=== PATIENT | male | born 1960 | race Caucasian/White ===

== ENCOUNTER → 2018-09-09 13:40 | Outpatient (CLI) | payer MEDICARE, SELFPAY ==
[2018-09-09 14:46] LABS: Anion Gap 11.7 mEq/L (5-15); Blood Urea Nitrogen 8 mg/dL (7-18); Calcium 9.3 mg/dL (8.5-10.1); Carbon Dioxide 26 mmol/L (21.0-32.0); Chloride 105 mmol/L (98-107); Creatinine,Serum 1.46 mg/dL (0.70-1.30); Estimated Glomerular Filt Rate 49 ml/min (>60); GFR (African American) 60 ML/MIN (>60); Glucose 92 mg/dL (74-106); Potassium 4.7 mmoL/L (3.5-5.1); Sodium 138 mmol/L (136-145); Uric Acid 8.4 mg/dL (2.6-7.2)
== END ==
PROVIDERS: Visit Provider Emergency Medicine
DX: M25.50 Pain in unspecified joint (principal)
CPT/HCPCS: 80048; 84550

== ENCOUNTER → 2019-01-07 13:57 | Outpatient (CLI) | payer MEDICARE, SELFPAY ==
[2019-01-07 14:14] LABS: Basophils % 0.4 % (0.1-2.0); Eosinophils # 0.2 K/mm3 (0.0-0.4); Eosinophils % 2.8 % (0.1-12.0); Hematocrit 40.6 % (42.0-52.0); Hemoglobin 12.8 g/dL (14.1-18.0); Lymphocytes # 1.4 K/mm3 (0.7-4.5); Lymphocytes % 17.5 % (10-50); Mean Corpuscular HGB Conc 31.6 g/dL (31.8-35.4); Mean Corpuscular Hemoglobin 31.1 pg (27.0-31.2); Mean Corpuscular Volume 98.4 fl (80-94); Mean Platelet Volume 8.2 fl (7.4-10.4); Monocytes # 0.5 K/mm3 (0.1-1.0); Monocytes % 5.7 % (1.7-9.3); Neutrophils # 5.8 K/mm3 (1.8-7.8); Neutrophils % 73.6 % (37.0-80.0); Platelet Count 328 K/mm3 (142-424); Red Blood Count 4.12 M/mm3 (4.60-6.20); Red Cell Distribution Width 14.2 % (11.5-17.5); White Blood Count 7.9 K/mm3 (4.8-10.8)
[2019-01-07 15:12] LABS: Alanine Aminotransferase 23 U/L (12-78); Albumin Level 3.7 gm/dL (3.4-5.0); Albumin/Globulin Ratio 1.1 (1.1-1.8); Alkaline Phosphatase 134 U/L (46-116); Anion Gap 16.7 mEq/L (5-15); Aspartate Amino Transferase 20 U/L (15-37); Bilirubin,Total 0.5 mg/dL (0.2-1.0); Blood Urea Nitrogen 14 mg/dL (7-18); Calcium 8.3 mg/dL (8.5-10.1); Carbon Dioxide 21 mmol/L (21.0-32.0); Chloride 105 mmol/L (98-107); Chol/HDL Ratio 5.1 (1-3.5); Cholesterol 147 mg/dL (140-200); Creatinine,Serum 1.41 mg/dL (0.70-1.30); Estimated Glomerular Filt Rate 51 ml/min (>60); GFR (African American) 62 ML/MIN (>60); Globulin 3.3 gm/dl (1.3-3.2); Glucose 96 mg/dL (74-106); HDL Cholesterol 29 mg/dL (27-67); LDL Cholesterol 80 mg/dL (0-130); Potassium 4.7 mmoL/L (3.5-5.1); Sodium 138 mmol/L (136-145); Thyroid Stimulating Hormone 5.02 uIU/ml (0.358-3.740); Triglycerides 192 mg/dL (30-200); Uric Acid 7.5 mg/dL (2.6-7.2); VLDL Cholesterol 38 mg/dL (0-40)
[2019-01-07 16:20] LABS: Amphetamine/Metha Screen,Urine Negative ng/mL (<1000); Barbiturates Screen,Urine Negative ng/mL (<200); Benzodiazepines Screen,Urine Negative ng/mL (<200); Cannabinoid Screen,Urine Negative ng/mL (<50); Cocaine Screen,Urine Negative ng/mL (<300); Methadone Screen,Urine Negative ng/mL (<300); Opiate Screen,Urine Positive ng/mL (<300); Phencyclidine Screen,Urine Negative ng/mL (<25)
== END ==
PROVIDERS: Visit Provider Emergency Medicine
DX: F41.9 Anxiety disorder, unspecified (principal); R53.83 Other fatigue; Z79.899 Other long term (current) drug therapy
CPT/HCPCS: 80053; 80061; 80305; 84439; 84443; 84550; 85025

== ENCOUNTER → 2020-05-11 14:36 | Outpatient (CLI) | payer MEDICARE, SELFPAY ==
[2020-05-12 14:25] LABS: Basophils # 0.1 K/mm3 (0-0.2); Basophils % 0.8 % (0.1-2.0); Eosinophils # 0.3 K/mm3 (0.0-0.4); Eosinophils % 4.8 % (0.1-12.0); Hematocrit 45.4 % (42.0-52.0); Hemoglobin 14.5 g/dL (14.1-18.0); Lymphocytes # 1.7 K/mm3 (0.7-4.5); Mean Corpuscular Hemoglobin 31.3 pg (27.0-31.2); Mean Corpuscular Volume 97.8 fl (80-94); Mean Platelet Volume 9.2 fl (7.4-10.4); Monocytes # 0.5 K/mm3 (0.1-1.0); Monocytes % 7.3 % (1.7-9.3); Neutrophils # 4.4 K/mm3 (1.8-7.8); Platelet Count 370 K/mm3 (142-424); Red Blood Count 4.64 M/mm3 (4.60-6.20); Red Cell Distribution Width 15.2 % (11.5-17.5)
[2020-05-12 14:30] LABS: Alanine Aminotransferase 19 U/L (12-78); Albumin Level 4.3 g/dl (3.5-5.0); Albumin/Globulin Ratio 1.4 (1.1-1.8); Alkaline Phosphatase 111 U/L (38-126); Anion Gap 18.3 mEq/L (5-15); Aspartate Amino Transferase 35 U/L (17-59); Bilirubin,Total 0.4 mg/dl (0.2-1.3); Blood Urea Nitrogen 12 mg/dl (9-20); Calcium 10.2 mg/dl (8.4-10.2); Carbon Dioxide 24 mmol/L (22.0-30.0); Chloride 103 mmol/L (98-107); Chol/HDL Ratio 3.9 (1-3.5); Cholesterol 213 mg/dl (140-200); Estimated Glomerular Filt Rate 56 ml/min (>60); GFR (African American) 68 ML/MIN (>60); Glucose 104 mg/dl (74-100); HDL Cholesterol 54 mg/dl (40-60); Potassium 4.3 mmoL/L (3.5-5.1); Sodium 141 mmol/L (136-145); Total Protein,Serum 7.3 g/dl (6.3-8.2); Triglycerides 230 mg/dl (30-150); VLDL Cholesterol 46 mg/dL (0-40)
[2020-05-12 14:46] LABS: Free T4 (Free Thyroxine) 0.85 ng/dl (0.78-2.19)
== END ==
PROVIDERS: Visit Provider Emergency Medicine
DX: E03.9 Hypothyroidism, unspecified (principal); R41.3 Other amnesia; K59.00 Constipation, unspecified
CPT/HCPCS: 80053; 80061; 84439; 84443; 85025

== ENCOUNTER 2024-02-21 08:26 | Outpatient (POV) | payer MEDICARE, SELFPAY ==
--- OUTSIDE RECORDS SUMMARY | 2024-02-21 08:29 | XMS_ITS | Continuity of Care Document ---
Author Name Unknown Address [address] [place] [phone] Organization [facility] Phone Care Team Providers Care Warrant Clerk Name Role Phone PAMELLA ANDERSEN Primary Care ARVIND FOREMAN V Admitting ARVIND FOREMAN V Primary Attending ARVIND FOREMAN V Unavailable ALLERGIES AND ADVERSE REACTIONS ALLERGIES AND ADVERSE REACTIONS Code System Allergy Substance Adverse Reaction Date Reaction (Severity) Comment Status Reported By Updated [place] [id number] SNOMED CT NSAIDS Rash active [id number] on October 18, 2023 4:39:29 PM UTC FAMILY HISTORY RELATION: Father Status: LIVING SNOMED-CT Diagnosis Age At Onset [id number] Hypertensive disorder [id number] Hypercholesterolemia RELATION: Mother Status: LIVING SNOMED-CT Diagnosis Age At Onset [id number] Hypertensive disorder [id number] Hypercholesterolemia RELATION: Brother Status: LIVING SNOMED-CT Diagnosis Age At Onset Information not available RELATION: Sister Status: LIVING SNOMED-CT Diagnosis Age At Onset Information not available RELATION: Sister Status: LIVING SNOMED-CT Diagnosis Age At Onset Information not available RESULTS Patient: CHARLIE Cornell Date of : 1960 LABORATORY RESULTS ORDER 100: OCCULT BLOOD SING LE (LOINC: 2335-8) ORDER DATE: October 18, 2023 4:53:00 PM UTC Specimen Source: Stool PERFORMING LAB: [address] [id number] Result Comment: Final Result Date: October 18, 2023 5:13:00 PM UTC (TECH: HC) LOINC TEST FLAG RESULT REFERENCE RANGE UPDA GODFREY BY 2335-8 Hemoglobin.gastroin testinal [Presence] in Stool N NEGATIVE NEGATIVE October 18 5:13:00 PM UTC (TECH: HC) 42651-7 Reagent Lot number N [id number] F ebruary 2023 5:13:00 PM UTC (TECH: HC) 61061-7 Expiration date N 06/2025 Febr uary 2023 5:13:00 PM UTC (TECH: HC) 38238-5 Provider orders N P POSITIVE Febr uary 2023 5:13:00 PM UTC (TECH: HC) 42828-8 Provider orders N N NEGATIVE Febr uary 2023 5:13:00 PM UTC (TECH: HC) 15345-5 Reagent Lot number N [id number] F ebruary 2023 5:13:00 PM UTC (TECH: HC) [id number] Expiration date of Supply N 09/2025October 18 5:13:00 PM UTC (TECH: HC) ORDER 200: CBC AUTO W DIFF ( LOINC: 33428-3) ORDER DATE: October 18, 2023 4:56:00 PM UTC Specimen Source: Whole Blood PERFORMING LAB: [address] [id number] Result Comment: Final Result Date: October 18, 2023 5:26:00 PM UTC (TECH: HC) LOINC TEST FLAG RESULT REFERENCE RANGE UPDA GODFREY BY 6690-2 Leukocytes [#/volume] in Blood by Automated count N 7.3 10^3/uL 4.5 10^3/uL - 11.5 10^3/uL October 18, 2023 5:26:00 PM UTC (TECH: HC) 789-8 Erythrocytes [#/volume] in Blood by Automated count L 3.20 10^6/uL 4.25 10^6/uL - 5.57 10^6/uL October 18, 2023 5:26:00 PM UTC (TECH: HC) 718-7 Hemoglobin [Mass/volume] in Blood L 9.8 g/dL 13.5 g/dL - 17.2 g/dL October 18, 2023 5:26:00 PM UTC (TECH: HC) 85364-8 Hematocrit [Volume Fraction] of Blood L 30.1 % 42.0 % - 52.0 % October 18, 2023 5:26:00 PM UTC (TECH: HC) 787-2 Erythrocyte mean corpuscular volume [Entitic volume] by Automated count N 94.1 fl 80 fl - 95 fl October 18, 2023 5:26:00 PM UTC (TECH: HC) 98872-8 Erythrocyte mean corpuscular hemoglobin [Entitic mass] in Blood from [place]etus by Automated count N 30.6 pg 27.0 pg - 34.0 pg October 18, 2023 5:26:00 PM UTC (TECH: HC) 80226-8 Erythrocyte mean corpuscular hemoglobin concentration [Mass/volume] in Blood from Fetus by Automated count N 32.6 g/dL 32.0 g/dL - 36.0 g/dL October 18, 2023 5:26:00 PM UTC (TECH: HC) 72272-7 Platelets [#/volume] in Blood N 210 10^3/uL 150 10^3/uL - 450 10^3/uL October 18, 2023 5:26:00 PM UTC (TECH: HC) 05340-3 Erythrocyte distribution width [Ratio] N 13.8 % 12.3 % - 15.1 % October 18, 2023 5:26:00 PM UTC (TECH: HC) 57048-8 Platelet mean volume [Entitic volume] in Blood by Automated count N 9.9 fl 7.4 fl - 10.4 fl October 18, 2023 5:26:00 PM UTC (TECH: HC) 46599-6 Granulocytes/100 leukocytes in Blood by Automated count N 71.9 % 40 % - 75 % October 18, 2023 5:26:00 PM UTC (TECH: HC) 736-9 Lymphocytes/100 leukocytes in Blood by Automated count L 14.6 % 15 % - 57 % October 18, 2023 5:26:00 PM UTC (TECH: HC) 5905-5 Monocytes/100 leukocytes in Blood by Automated count N 10.4 % 4.0 % - 12.0 % October 18, 2023 5:26:00 PM UTC (TECH: HC) 713-8 Eosinophils/100 leukocytes in Blood by Automated count N 2.5 % 0.0 % - 4.0 % October 18, 2023 5:26:00 PM UTC (TECH: HC) 706-2 Basophils/100 leukocytes in Blood by Automated count N 0.5 % 0.0 % - 1.0 % October 18, 2023 5:26:00 PM UTC (TECH: HC) 35634-6 Immature granulocytes [#/volume] in Blood N 0.1 % 0.0 % - 0.8 % October 18, 2023 5:26:00 PM UTC (TECH: HC) 44537-0 Granulocytes [#/volume] in Blood by Automated count N 5.25 10^3/uL October 18, 2023 5:26:00 PM UTC (TECH: HC) 731-0 Lymphocytes [#/volume] in Blood by Automated count N 1.07 10^3/uL October 18, 2023 5:26:00 PM UTC (TECH: HC) 742-7 Monocytes [#/volume] in Blood by Automated count N 0.76 10^3/uL October 18, 2023 5:26:00 PM UTC (TECH: HC) 711-2 Eosinophils [#/volume] in Blood by Automated count N 0.18 10^3/uL October 18, 2023 5:26:00 PM UTC (TECH: HC) 704-7 Basophils [#/volume] in Blood by Automated count N 0.04 10^3/uL October 18, 2023 5:26:00 PM UTC (TECH: HC) 71340-3 Immature granulocytes [#/volume] in Blood N 0.01 10^3/uL October 18, 2023 5:26:00 PM UTC (TECH: HC) 32581-7 Manual differential performed [Presence] in Blood N NO October 18, 2023 5:26:00 PM UTC (TECH: HC) ORDER 300: COMP METABOLIC PA JASON (LOINC: 35530-1) ORDER DATE: October 18, 2023 4:56:00 PM UTC Specimen Source: Serum/Plasm a PERFORMING LAB: [address] [id number] Result Comment: Final Result Date: October 18, 2023 5:38:00 PM UTC (TECH: HC) LOINC TEST FLAG RESULT REFERENCE RANGE UPDA GODFREY BY 2951-2 Sodium [Moles/volume ] in Serum or Plasma N 142 mmol/L 136 mmol/L - 145 mmol/L October 18, 2023 5:38:00 PM UTC (TECH: HC) 2823-3 Potassium [Moles/volume] in Serum or Plasma N 4.0 mmol/L 3.5 mmol/L - 5.1 mmol/L October 18, 2023 5:38:00 PM UTC (TECH: HC) 2075-0 Chloride [Moles/volume] in Serum or Plasma N 103 mmol/L 98 mmol/L - 107 mmol/L October 18, 2023 5:38:00 PM UTC (TECH: HC) 8-9 Carbon dioxide, tota l [Moles/volume] in Serum or Plasma N 25 mmol/L 21 mmol/L - 32 mmol/L October 18, 2023 5:38:00 PM UTC (TECH: HC) 30199-1 Anion gap 3 in Serum or Plasma N 14.0 October 18, 2023 5:38:00 PM UTC (TECH: AllergEase) 2345-7 Glucose [Mass/volume ] in Serum or Plasma N 103 mg/dL 70 mg/dL - 110 mg/dL October 18, 2023 5:38:00 PM UTC (TECH: AllergEase) 3094-0 Urea nitrogen [Mass/volume] in Serum or Plasma H 54 mg/dL 7 mg/dL - 18 mg/dL October 18, 2023 5:38:00 PM UTC (TECH: HC) 2160-0 Creatinine [Mass/volume] in Serum or Plasma H 7.6 mg/dL 0.8 mg/dL - 1.3 mg/dL October 18, 2023 5:38:00 PM UTC (TECH: AllergEase) 3097-3 Urea nitrogen/Creatinine [Mass Ratio] in Serum or Plasma L 7.1 Ratio 9 Ratio - 21 Ratio October 18, 2023 5:38:00 PM UTC (TECH: AllergEase) 11546-2 Glomerular filtratio n rate/1.73 sq M.predicted by Creatinine-based formula (MDRD) L 8 mL/min >60 October 18, 2023 5:38:00 PM UTC (TECH: HC) 2885-2 Protein [Mass/volume ] in Serum or Plasma N 6.5 g/dL 6.4 g/dL - 8.2 g/dL October 18, 2023 5:38:00 PM UTC (TECH: HC) 1751-7 Albumin [Mass/volume ] in Serum or Plasma L 3.1 g/dL 3.4 g/dL - 5.0 g/dL October 18, 2023 5:38:00 PM UTC (TECH: HC) 12295-3 Calcium [Mass/volume ] in Serum or Plasma H 12.0 mg/dL 8.5 mg/dL - 10.1 mg/dL October 18, 2023 5:38:00 PM UT (agreement24 avtal24) 31606-0 Calcium [Mass/volume ] corrected for total protein in Serum or Plasma H 12.7 mg/dL 8.5 mg/dL - 10.1 mg/dL October 18, 2023 5:38:00 PM UT (agreement24 avtal24) 1975-2 Bilirubin.total [Mass/volume] in Serum or Plasma L 0.3 mg/dL 0.4 mg/dL - 1.5 mg/dL October 18, 2023 5:38:00 PM UT ([facility]: AllergEase) 1920-8 Aspartate aminotransferase [Enzymatic activity/volume] in Serum or Plasma L 10 U/L 15 U/L - 37 U/L October 18, 2023 5:38:00 PM UT (agreement24 [email or web address]) 1742-6 Alanine aminotransferase [Enzymatic activity/volume] in Serum or Plasma L 7 U/L 12 U/L - 78 U/L October 18, 2023 5:38:00 PM UT ([facility]: AllergEase) 6768-6 Alkaline phosphatase [Enzymatic activity/volume] in Serum or Plasma N 86 U/L October 18, 2023 5:38:00 PM UT ([facility]: AllergEase) ORDER 400: PT PROTHROMBIN TI ME W INR (LOINC: 78602-3) ORDER DATE: October 18, 2023 4:56:00 PM UT Specimen Source: Plasma PERFORMING LAB: [address] [id number] Result Comment: Final Result Date: October 18, 2023 5:36:00 PM [facility] (TECH: AllergEase) LOINC TEST FLAG RESULT [place] [address]-8 INR in Platelet poor plasma or blood by Coagulation assay N 10.2 seconds 9.1 seconds - 12.0 seconds October 18, 2023 5:36:00 PM UT ([facility]: AllergEase) 6301-6 INR in Platelet poor plasma by Coagulation assay N 0.93 0.9 - 1.1 October 18, 2023 5:36:00 PM UT (TECH: AllergEase) ORDER 500: PTT PARTIAL THROM B TIME (LOINC: 07167-1) ORDER DATE: October 18, 2023 4:56:00 PM UTC Specimen Source: Plasma PERFORMING LAB: [address] [id number] Result Comment: Final Result Date: October 18, 2023 5:36:00 PM UTC (TECH: HC) LOINC TEST FLAG RESULT [place] [address]-5 Activated partial thromboplastin time (aPTT) in Platelet poor plasma by Coagulation assay N 25.9 seconds 24.5 seconds - 32.8 seconds October 18, 2023 5:36:00 PM UTC (TECH: HC) LABORATORY NARRATIVE RESULTS Information is not available RADIOLOGY RESULTS ORDER 700: ABD SERIES W CHES T (LOINC: 46733-9) ORDER DATE: October 18, 2023 4:56:00 PM UTC PERFORMING LAB: [address] [id number] Final Result Date: October 18, 2023 6:31:55 PM UTC [address] [place] [address] Name: GOLD GUERRA Exam Date: 10/18/2023 : 1960 Age 63 years Gender: M Physician: ARVIND FOREMAN Facility: [facility] Facility HSV: Outpatient Exam: ABD SERIES W CHEST Abdominal acute series History: Acute generalized abdominal pain with constipation. Comparison: 08/14/2023. Findings: Chest: Single view was obtained. Heart and mediastinal structures are within normal limits. There is linear atelectasis in the right lung base. There is no focal pneumonia, pleural effusion or pneumothorax. Abdomen: 2 views were obtained. There is a nonobstructive bowel gas pattern. There is a large amount of colonic stool. No free air is identified. Impression: Large amount of colonic stool without obstruction identified. Films reviewed , interpreted and dictated by Dr. Melissa Martinez. Transcribed by Felipe Mcdonnell PA-C. Dictated By: MELISSA MARTINEZ Transcribed By: MELISSA MARTINEZ Transcribed On: 10/18/2023 1:31 PM Electronically signed by: MELISSA MARTINEZ 10/18/2023 Thank you for referring GOLD GUERRA to [facility]. Legally authenticated by CA Quinonse MD 2023-10-18 13:31:55 PATHOLOGY NARRATIVE RESULTS Information is not available MICROBIOLOGY RESULTS No Micro Labs/Results Exist for Patient BLOOD ADMIN RESULTS Information is not available MEDICATIONS HOME MEDICATIONS Status RXNORM Medication Dose Route Frequency Dates Comments R eported By Updated By Active 681610 atenolol 100 mg tablet 1.0 TAB BY MOUTH DAILY Last Dose: [id number] on October 18, 2023 4:39:30 PM [facility] Active 245393 atorvastatin 20 mg tablet 1.0 TAB BY MOUTH DAILY Last Dose: [id number] on October 18, 2023 4:39:30 PM [facility] Active 5274605 divalproex 500 mg tablet 0.0 BY MOUTH BID Last Dose: [id number] on October 18, 2023 4:39:30 PM [facility] Active 849270 omeprazole 20 mg capsule 0.0 BY MOUTH DAILY Last Dose: [id number] on October 18, 2023 4:39:31 PM [facility] Active 056634 QUEtiapine (SEROQUEL) 400.0 MG BY MOUTH BEDTIME Last Dose: [id number] on October 18, 2023 4:39:31 PM [facility] Active 511022 risperidone 1 mg tablet 0.0 MG BY MOUTH BID Last Dose: [id number] on October 18, 2023 4:39:31 PM [facility] DISCHARGE MEDICATIONS Status RXNORM Medication Dose Route Frequency Dates Comments Physic melvi Updated By No Discharge Medication Info rmation Available INPATIENT MEDICATIONS Status RXNORM Medication Dose Route Frequency Rate Quantity Dates Comments Physician Updated By No Inpatient Medication Info rmation Available SOCIAL HISTORY SOCIAL HISTORY SNOMED-CT Social History Element Description Effective Dates Offered Cessation Comment UpdatedBy [id number] Historical Tobacco smoking status Former Smoker [id number] on April 13, 2023 4:18:01 PM [facility] [id number] Historical Tobacco smoking status Never Smoked [id number] on March 09, 2023 12:27:02 PM [facility] [id number] Historical Tobacco smoking status Smoker, Current Status Unknown [id number] on January 03, 2023 2:16:04 PM [facility] [id number] Historical Tobacco smoking status Unknown If Ever Smoked [id number] on July 29, 2012 9:28:34 PM [facility] SOCIAL HISTORY - Gender Sex: Male SOCIAL HISTORY - Sexual Behavior Sexual Orientation Gender Identity SNOMED-CT Description SNO MED -CT Description Activity Level No of Partners Partner Type UpdatedBy Information is not available VITAL SIGNS PATIENT VITAL SIGNS This section displays the mo st recent value for each vital sign as of October 22, 2023 10:57:02 AM [place] Loinc Code Vital Sign Activity Date Result Updated By 8310-5 Body temperature October 18 4:36:42 PM UTC 98.0 [degF] [id number] on October 19, 2023 6:00:13 [place] [address]-6 Body weight Measured September 6:00:15 PM UTC 94.801 kg (209.0 lb) [id number] on October 19, 2023 6:00:15 PM UTC 8462-4 Diastolic blood pressure October 18, 2023 5:45:00 PM UTC 88.0 mm[Hg] [id number] on October 19, 2023 6:00:19 PM UT 8867-4 Heart rate October 18 5:45:00 PM UTC 83 /min [id number] on October 19, 2023 6:00:[place] [address]-1 Oxygen saturation in Arterial blood by Pulse oximetry October 18, 2023 5:45:00 PM UTC 96.0 % [id number] on October 19, 2023 6:00:19 PM UT 9279-1 Respiratory rate October 18 4:36:42 PM UTC 15 /min [id number] on October 19, 2023 6:00:13 PM UT 8480-6 Systolic blood pressure October 18, 2023 5:45:00 PM UTC 134.0 mm[Hg] [id number] on October 19, 2023 6:00:19 PM UT PEDIATRIC GROWTH CHART - VITAL SIGNS This section displays Head C ircumference Percentile, Weight for Length Percentile and BMI Percentile Loinc Code Pediatric Measure Age (Months) Result Updat ed By No Pediatric Growth Chart Pe rcentile Information Available. HEALTH CONCERNS Problems Concern Status Health Concern problem infor mation not available. Smoking Status Status Years Used Consumed packs p er day Health Concern smoking histo ry information not available. Family History Concern Status Health Concern family histor y information not available. ENCOUNTERS ENCOUNTER INFORMATION Reason for Visit BACK PAIN Admission October 18, 2023 4:22:[address] [id number] Discharge October 18, 2023 5:59:00 PM [place] DISCHARGED TO HOME OR SELF CARE ENCOUNTER DIAGNOSES Notes information is not lauryn ilable. Code System Diagnosis Onset Date Diagnosis information is not available. ABSTRACT DIAGNOSES Code System Diagnosis Updated By R42 ICD10 DIZZINESS AND GIDDINESS [id number] on October 22, 2023 10:56:46 AM [facility] M54.50 ICD10 LOW BACK PAIN, UNSPECIFIED P [id number] on October 22, 2023 10:56:46 AM [place] R11.0 ICD10 NAUSEA [id number] on 2023 10:56:46 AM [place] N18.9 ICD10 CHRONIC KIDNEY DISEASE, UNSP ECIFIED [id number] on October 22, 2023 10:56:46 AM [facility] K59.00 ICD10 CONSTIPATION, UNSPECIFIED PQ [id number] on October 22, 2023 10:56:46 AM [facility] M54.50 ICD10 LOW BACK PAIN, UNSPECIFIED P [id number] on October 22, 2023 10:56:46 AM [facility] E78.5 ICD10 HYPERLIPIDEMIA, UNSPECIFIED [id number] on October 22, 2023 10:56:46 AM [facility] F41.9 ICD10 ANXIETY DISORDER, UNSPECIFIE D [id number] on October 22, 2023 10:56:46 AM [facility] F31.9 ICD10 BIPOLAR DISORDER, UNSPECIFIE D [id number] on October 22, 2023 10:56:46 AM [facility] Z79.899 ICD10 OTHER LONG-TERM (CURRENT) DRUG THERAPY [id number] on October 22, 2023 10:56:46 AM [facility] Z88.6 ICD10 ALLERGY STATUS TO ANALGESIC AGENT [id number] on October 22, 2023 10:56:46 AM [facility] CARE TEAM Care Warrant Clerk Role PAMELLA [facility] Primary Care ARVIND FOREMAN Admitting ARVIND FOREMAN Primary Attending ARVIND FOREMAN Referring CARE TEAM CARE credit cashier Role on Team Status Start Date End Date Update d By KELLEN POWER Referring normal September 282023 4:55:22 PM [facility] October 18, 2023 5:00:00 AM [facility] [id number] on October 18, 2023 4:55:22 PM [facility] KELLEN POWER Attending normal September 282023 4:55:22 PM [facility] October 18, 2023 5:00:00 AM [facility] [id number] on October 18, 2023 4:55:22 PM [facility] KELLEN POWER Admitting normal September 282023 4:55:22 PM [facility] October 18, 2023 5:00:00 AM [facility] [id number] on October 18, 2023 4:55:22 PM [facility] GANESH Quinones MD PHY PCP normal October 18, 2023 4:22:52 PM [facility] October 18, 2023 5:00:00 AM [facility] [id number] on October 18, 2023 4:55:22 PM [facility]
--- OUTSIDE RECORDS SUMMARY | 2024-02-21 08:29 | XMS_ITS | Continuity of Care Document ---
Author Name Unknown Address [address] [place] [address] [phone] Organization [facility] Phone Care Team Providers Care Manager Plant Name Role Phone PAMELLA ANDERSEN Primary Care PAMELLA ANDERSEN Unavailable PAMELLA ANDERSEN Primary Attending PAMELLA ANDERSEN Admitting ALLERGIES AND ADVERSE REACTIONS ALLERGIES AND ADVERSE REACTIONS Code System Allergy Substance Adverse Reaction Date Reaction (Severity) Comment Status Reported By [place] [id number] SNOMED CT NSAIDS Rash active [id number] on October 22, 2023 6:32:01 PM [facility] FAMILY HISTORY RELATION: Father Status: LIVING SNOMED-CT Diagnosis Age At Onset [id number] Hypertensive disorder [id number] Hypercholesterolemia RELATION: Mother Status: LIVING SNOMED-CT Diagnosis Age At Onset [id number] Hypertensive disorder [id number] Hypercholesterolemia RELATION: Brother Status: LIVING SNOMED-CT Diagnosis Age At Onset Information not available RELATION: Sister Status: LIVING SNOMED-CT Diagnosis Age At Onset Information not available RELATION: Sister Status: LIVING SNOMED-CT Diagnosis Age At Onset Information not available RESULTS Patient: CHARLIE Cornell Date of : 1960 LABORATORY RESULTS ORDER 300: URINE DRUG SCREEN - EXL MAX (LOINC: [id number]) ORDER DATE: November 28, 2023 8:27:00 PM [place] Specimen Source: URINE Specimen Type: Urine specime n PERFORMING LAB: [address] [id number] Result Comment: Final Result Date: November 28, 2023 9:05:00 PM UT (TECH: HC) LOINC TEST FLAG [place] [address]-7 Amphetamine+Methamph etamine [Presence] in Urine N NEGATIVE NEGATIVE November 27 9:05:00 PM UTC (TECH: HC) 3377-9 Barbiturates [Presen ce] in Urine N NEGATIVE NEGATIVE November 28, 2023 9:05:00 PM UTC (TECH: HC) 35281-3 Benzodiazepine metab olites [Presence] in Urine by Screen method N NEGATIVE NEGATIVE November 28, 2023 9:05:00 PM UTC (TECH: HC) 3414-0 Buprenorphine [Prese nce] in Urine N NEGATIVE NEGATIVE November 28, 2023 9:05:00 PM UTC (TECH: HC) 3397-7 Cocaine [Presence] in Urine N NEGATIVE NE GATIVE November 28, 2023 9:05:00 PM UTC (TECH: HC) 36506-0 Methadone [Presence] in Specimen N NEGATIVE NEGATIVE November 28, 2023 9:05:00 PM UTC (TECH: HC) 63778-9 Opiates [Mass/volume ] in Specimen N NEGATIVE NEGATIVE November 28, 2023 9:05:00 PM UTC (TECH: HC) 02684-1 oxyCODONE [Presence] in Specimen POSITIVE NEGATIVE November 28, 2023 9:05:00 PM UTC (TECH: HC) 3427-2 Cannabinoids [Presen ce] in Urine POSITIVE NEGATIVE November 28, 2023 9:05:00 PM UTC (TECH: HC) 81781-1 Phencyclidine [Prese nce] in Specimen N NEGATIVE NEGATIVE November 28, 2023 9:05:00 PM UTC (TECH: HC) 67944-5 Fentanyl [Presence] in Urine N NEGATIVE N EGATIVE November 28, 2023 9:05:00 PM UTC (TECH: HC) 06144-1 Tricyclic antidepres sants [Presence] in Specimen N NEGATIVE NEGATIVE November 28, 2023 9:05:00 PM UTC (TECH: HC) 34445-8 Internal control result N PASS PASS November 28, 2023 9:05:00 PM UTC (TECH: HC) LABORATORY NARRATIVE RESULTS Information is not available RADIOLOGY RESULTS Information is not available PATHOLOGY NARRATIVE RESULTS Information is not available MICROBIOLOGY RESULTS No Micro Labs/Results Exist for Patient BLOOD ADMIN RESULTS Information is not available TREATMENT PLAN DISCHARGE MEDICATIONS Status RXNORM Medication Dose Route Frequency Dates Comments U pdated By Patient discharge medication information is not available. PATIENT OPEN ORDERS Code System Description Frequency Occurrences Priority [place] [address]-7 JASWINDER Gabapentin [Presence] in Urine ONE TIME 0 Routine November 28, 2023 6:30:00 PM [facility] GANESH Quinones MD [id number] on November 28, 2023 6:31:00 PM [facility] SCHEDULED PROCEDURES Code System Description Status Scheduled Date Upd ated By Patient scheduled procedure information is not available. MEDICATIONS HOME MEDICATIONS Status RXNORM NDC Medication Dose Route Frequency Dates Comments Reported By Updated By Drug Treatment Unknown DISCHARGE MEDICATIONS Status RXNORM NDC Medication Dose Route Frequency Dates Comments Physician Updated By No Discharge Medication Info rmation Available INPATIENT MEDICATIONS Status RXNORM NDC Medication Dose Route Frequency Rat e Quantity Dates Comments Physician Updated By No Inpatient Medication Info rmation Available SOCIAL HISTORY SOCIAL HISTORY SNOMED-CT Social History Element Description Effective Dates Offered Cessation Comment UpdatedBy [id number] Historical Tobacco smoking status Never Smoked [id number] on October 23, 2023 8:36:44 PM [facility] [id number] Historical Tobacco smoking status Former Smoker [id number] on April 13, 2023 4:18:01 PM [facility] [id number] Historical Tobacco smoking status Smoker, Current Status Unknown [id number] on January 03, 2023 2:16:04 PM [facility] [id number] Historical Tobacco smoking status Unknown If Ever Smoked [id number] on July 29, 2012 9:28:34 PM [facility] SOCIAL HISTORY - Gender Sex: Male SOCIAL HISTORY - Status : status i nformation is not available Intention in Next Year: intention information is not available SOCIAL HISTORY - Sexual Behavior Sexual Orientation Gender Identity SNOMED-CT Description SNO MED -CT Description Activity Level No of Partners Partner Type UpdatedBy Information is not available HEALTH CONCERNS Problems Concern Status Health Concern problem infor mation not available. Smoking Status Status Years Used Consumed packs p er day Health Concern smoking histo ry information not available. Family History Concern Status Health Concern family histor y information not available. ENCOUNTERS ENCOUNTER INFORMATION Reason for Visit Z79.899 Admission November 28, 2023 6:30:[address] [address] Discharge November 28, 2023 7:30:00 PM [facility] DIS CHARGED TO HOME OR SELF CARE ENCOUNTER DIAGNOSES Notes information is not lauryn ilable. Code System Diagnosis Onset Date Diagnosis information is not available. ABSTRACT DIAGNOSES Code System Diagnosis Updated By Z79.899 ICD10 OTHER DIRECTOR OF PLANNING (CURRENT) DRUG THERAPY [id number] on November 30, 2023 12:07:41 PM [facility] Z79.899 ICD10 OTHER HALFWAY (CURRENT) DRUG THERAPY [id number] on November 30, 2023 12:07:42 PM [facility] CARE TEAM Care Manager Plant Role PAMELLA ANDERSEN Primary Care PAMELLA ANDERSEN Referring PAMELLA SOKAN Primary Attending PAMELLA ANDERSEN Admitting CARE TEAM CARE peanut vendor Role on Team Status Start Date End Date Update d By GANESH POWER Referring normal November 28, 2023 4:00:00 AM [facility] November 28, 2023 4:00:00 AM [facility] [id number] on November 29, 2023 11:12:02 AM [facility] GANESH POWER Attending normal November 28, 2023 4:00:00 AM [facility] November 28, 2023 4:00:00 AM [facility] [id number] on November 29, 2023 11:12:02 AM [facility] GANESH POWER Admitting normal November 28, 2023 4:00:00 AM [facility] November 28, 2023 4:00:00 AM [facility] [id number] on November 29, 2023 11:12:02 AM [facility] GANESH POWER PCP normal November 28, 2023 6:30:36 PM [facility] November 28, 2023 4:00:00 AM [facility] [id number] on November 29, 2023 11:12:02 AM [facility]
--- OUTSIDE RECORDS SUMMARY | 2024-02-21 08:29 | XMS_ITS | Continuity of Care Document ---
Author Name Unknown Address [address] [place] [phone] Organization [facility] Phone Care Team Providers Care Coordinator Of Library Services Name Role Phone SHILPI HERNANDEZ Admitting PAMELLA ANDERSEN Primary Care SHILPI HERNANDEZ Primary Attending SHILPI HERNANDEZ Unavailable ALLERGIES AND ADVERSE REACTIONS ALLERGIES AND ADVERSE REACTIONS Code System Allergy Substance Adverse Reaction Date Reaction (Severity) Comment Status Reported By [place] [id number] SNOMED CT NSAIDS Rash active [id number] on October 22, 2023 6:32:01 PM [facility] FAMILY HISTORY RELATION: Father Status: LIVING SNOMED-CT Diagnosis Age At Onset [id number] Hypertensive disorder [id number] Hypercholesterolemia RELATION: Mother Status: LIVING SNOMED-CT Diagnosis Age At Onset [id number] Hypertensive disorder 68406067 Hypercholesterolemia RELATION: Brother Status: LIVING SNOMED-CT Diagnosis Age At Onset Information not available RELATION: Sister Status: LIVING SNOMED-CT Diagnosis Age At Onset Information not available RELATION: Sister Status: LIVING SNOMED-CT Diagnosis Age At Onset Information not available RESULTS Patient: CHARLIE Cornell Date of : 1960 LABORATORY RESULTS ORDER 400: CBC AUTO NO DIFF HEMOGRAM (LOINC: [id number]) ORDER DATE: January 17, 2024 1:18:00 PM UT Specimen Source: Whole Blood Specimen Type: Whole blood s ample PERFORMING LAB: [address] [id number] Result Comment: Final Result Date: January 17, 2024 1:33:00 PM UT (TECH: MRB) LOINC TEST FLAG RESULT REFERENCE RANGE UPDA GODFREY BY 6690-2 Leukocytes [#/volume ] in Blood by Automated count N 7.5 10^3/uL 4.5 10^3/uL - 11.5 10^3/uL January 17, 2024 1:33:00 PM UTC (TECH: MRB) 789-8 Erythrocytes [#/volu me] in Blood by Automated count L 3.97 10^6/uL 4.25 10^6/uL - 5.57 10^6/uL January 17, 2024 1:33:00 PM UTC (TECH: MRB) 718-7 Hemoglobin [Mass/volume] in Blood L 11.6 g/dL 13.5 g/dL - 17.2 g/dL January 17, 2024 1:33:00 PM UTC (TECH: MRB) 42995-5 Hematocrit [Volume Fraction] of Blood L 36.4 % 42.0 % - 52.0 % January 17, 2024 1:33:00 PM UTC (TECH: MRB) 787-2 Erythrocyte mean corpuscular volume [Entitic volume] by Automated count N 91.7 fl 80 fl - 95 fl January 17, 2024 1:33:00 PM UTC (TECH: MRB) 66408-5 Erythrocyte mean corpuscular hemoglobin [Entitic mass] in Blood from Fetus by Automated count N 29.2 pg 27.0 pg - 34.0 pg January 17, 2024 1:33:00 PM UTC (TECH: MRB) 97445-9 Erythrocyte mean corpuscular hemoglobin concentration [Mass/volume] in Blood from Fetus by Automated count L 31.9 g/dL 32.0 g/dL - 36.0 g/dL January 17, 2024 1:33:00 PM UTC (TECH: MRB) 46794-4 Platelets [#/volume] in Blood N 267 10^3/uL 150 10^3/uL - 450 10^3/uL January 17, 2024 1:33:00 PM UTC (TECH: MRB) 93282-8 Erythrocyte distribution width [Ratio] N 14.6 % 12.3 % - 15.1 % January 17, 2024 1:33:00 PM UTC (TECH: MRB) 04475-1 Platelet mean volume [Entitic volume] in Blood by Automated count N 9.5 fl 7.4 fl - 10.4 fl January 17, 2024 1:33:00 PM UTC (TECH: MRB) LABORATORY NARRATIVE RESULTS Information is not available [...] Priority [place] [address]-4 [facility] Renal function 2000 panel - Serum or Plasma ONE TIME 0 Routine January 17, 2024 1:18:00 PM [facility] 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 [id number] on January 17, 2024 1:18:00 PM [facility] SCHEDULED PROCEDURES Code System Description Status Scheduled [...] Description Effective Dates Offered Cessation Comment UpdatedBy [id number] Historical Tobacco smoking status Never Smoked [id number] on October 23, 2023 8:36:44 PM [facility] [id number] Historical Tobacco smoking status Former Smoker [id number] on April 13, 2023 4:18:01 PM [facility] [id number] Historical Tobacco smoking status Smoker, Current Status Unknown [id number] on January 03, 2023 2:16:04 PM [facility] [id number] Historical Tobacco smoking status Unknown If Ever Smoked [id number] on July 29, 2012 9:28:34 PM [facility] SOCIAL HISTORY - Gender Sex: Male SOCIAL [...] available. ENCOUNTERS ENCOUNTER INFORMATION Reason for Visit N16.5 Admission January 17, 2024 1:10:[address] [address] Discharge Patient Not Discharg ed ENCOUNTER DIAGNOSES Notes information is not lauryn ilable. Code System Diagnosis Onset Date Diagnosis information is not available. ABSTRACT DIAGNOSES Code System Diagnosis Updated By N18.5 ICD10 CHRONIC KIDNEY DISEASE, STAG E 5 [id number] on January 17, 2024 1:19:09 PM [facility] CARE TEAM Care Coordinator Of Library Services Role SHILPI HERNANDEZ Admitting PAMELLA ANDERSEN Primary Care SHILPI HERNANDEZ Primary Attending SHILPI HERNANDEZ Referring CARE TEAM CARE project account manager Role on Team Status Start Date End Date Update d By GANESH Quinones MD PHY PCP normal January 17, 2024 1:12:49 PM [facility] [id number] on January 17, 2024 1:12:49 PM [facility] DAVID DOBBINS APRN Referring normal January 16 1:12:49 PM [facility] [id number] on January 17, 2024 1:12:49 PM [facility] DAVID DOBBINS APRN Attending normal January 16 1:12:49 PM [facility] [id number] on January 17, 2024 1:12:49 PM [facility] DAVID DOBBINS APRN Admitting normal January 16 1:12:48 PM [facility] [id number] on January 17, 2024 1:12:49 PM [facility]
--- OUTSIDE RECORDS SUMMARY | 2024-02-21 08:29 | XMS_ITS | Continuity of Care Document ---
Author Name Unknown Address [address] [place] [phone] Organization [facility] Phone Care Team Providers Care Endoscopy Registered Nurse Name Role Phone CON CRAWLEY Admitting CON CRAWLEY Unavailable CON CRAWLEY Primary Attending PAMELLA ANDERSEN Primary Care ALLERGIES AND ADVERSE REACTIONS ALLERGIES AND ADVERSE REACTIONS Code System Allergy Substance Adverse Reaction Date Reaction (Severity) Comment Status Reported By [place] [id number] SNOMED CT NSAIDS Rash active [id number] on August 14, 2023 8:43:22 AM [facility] FAMILY HISTORY RELATION: Father Status: LIVING SNOMED-CT Diagnosis Age At Onset [id number] Hypertensive disorder [id number] Hypercholesterolemia RELATION: Mother Status: LIVING SNOMED-CT Diagnosis Age At Onset [id number] Hypertensive disorder [id number] Hypercholesterolemia RELATION: Brother Status: LIVING SNOMED-CT Diagnosis Age At Onset Information not available RELATION: Sister Status: LIVING SNOMED-CT Diagnosis Age At Onset Information not available RELATION: Sister Status: LIVING SNOMED-CT Diagnosis Age At Onset Information not available RESULTS Patient: CHARLIE Cornell Date of : 1960 LABORATORY RESULTS ORDER 100: CBC AUTO W DIFF ( LOINC: 39061-9) ORDER DATE: August 14, 2023 8:54:00 AM [place] Specimen Source: Whole Blood PERFORMING LAB: [address] [id number] Result Comment: Final Result Date: August 14, 2023 9:10:00 AM [facility] (TECH: MONICA) LOINC TEST FLAG RESULT REFERENCE RANGE UPDA GODFREY BY 6690-2 Leukocytes [#/volume] in Blood by Automated count H 15.1 10^3/uL 4.5 10^3/uL - 11.5 10^3/uL August 14, 2023 9:10:00 AM UTC (TECH: InferX) 789-8 Erythrocytes [#/volume] in Blood by Automated count L 3.87 10^6/uL 4.25 10^6/uL - 5.57 10^6/uL August 14, 2023 9:10:00 AM UTC (TECH: InferX) 718-7 Hemoglobin [Mass/volume] in Blood L 12.6 g/dL 13.5 g/dL - 17.2 g/dL August 14, 2023 9:10:00 AM UTC (TECH: InferX) 95629-5 Hematocrit [Volume Fraction] of Blood L 37.5 % 42.0 % - 52.0 % August 14, 2023 9:10:00 AM UTC (TECH: InferX) 787-2 Erythrocyte mean corpuscular volume [Entitic volume] by Automated count H 96.9 fl 80 fl - 95 fl August 14, 2023 9:10:00 AM UTC (TECH: InferX) 26339-9 Erythrocyte mean corpuscular hemoglobin [Entitic mass] in Blood from Fetus by Automated count N 32.6 pg 27.0 pg - 34.0 pg August 14, 2023 9:10:00 AM UTC (TECH: InferX) 16316-8 Erythrocyte mean corpuscular hemoglobin concentration [Mass/volume] in Blood from Fetus by Automated count N 33.6 g/dL 32.0 g/dL - 36.0 g/dL August 14, 2023 9:10:00 AM UTC (TECH: InferX) 11287-5 Platelets [#/volume] in Blood N 250 10^3/uL 150 10^3/uL - 450 10^3/uL August 14, 2023 9:10:00 AM UTC (TECH: InferX) 52977-8 Erythrocyte distribution width [Ratio] N 13.6 % 12.3 % - 15.1 % August 14, 2023 9:10:00 AM UTC (TECH: InferX) 61202-3 Platelet mean volume [Entitic volume] in Blood by Automated count N 9.8 fl 7.4 fl - 10.4 fl August 14, 2023 9:10:00 AM UTC (TECH: InferX) 00456-3 Granulocytes/100 leukocytes in Blood by Automated count H 87.0 % 40 % - 75 % August 14, 2023 9:10:00 AM UTC (TECH: RJV) 736-9 Lymphocytes/100 leukocytes in Blood by Automated count L 6.7 % 15 % - 57 % August 14, 2023 9:10:00 AM UTC (TECH: RJV) 5905-5 Monocytes/100 leukocytes in Blood by Automated count N 4.8 % 4.0 % - 12.0 % August 14, 2023 9:10:00 AM UTC (TECH: RJV) 713-8 Eosinophils/100 leukocytes in Blood by Automated count N 0.8 % 0.0 % - 4.0 % August 14, 2023 9:10:00 AM UTC (TECH: RJV) 706-2 Basophils/100 leukocytes in Blood by Automated count N 0.2 % 0.0 % - 1.0 % August 14, 2023 9:10:00 AM UTC (TECH: RJV) 77325-4 Immature granulocytes [#/volume] in Blood N 0.5 % 0.0 % - 0.8 % August 14, 2023 9:10:00 AM UTC (TECH: RJV) 58445-1 Granulocytes [#/volume] in Blood by Automated count N 13.18 10^3/uL August 14, 2023 9:10:00 AM UTC (TECH: RJV) 731-0 Lymphocytes [#/volume] in Blood by Automated count N 1.01 10^3/uL August 14, 2023 9:10:00 AM UTC (TECH: RJV) 742-7 Monocytes [#/volume] in Blood by Automated count N 0.72 10^3/uL August 14, 2023 9:10:00 AM UTC (TECH: RJV) 711-2 Eosinophils [#/volume] in Blood by Automated count N 0.12 10^3/uL August 14, 2023 9:10:00 AM UTC (TECH: RJV) 704-7 Basophils [#/volume] in Blood by Automated count N 0.03 10^3/uL August 14, 2023 9:10:00 AM UTC (TECH: RJV) 85367-3 Immature granulocytes [#/volume] in Blood N 0.07 10^3/uL August 14, 2023 9:10:00 AM [facility] (TECH: InferX) 01124-8 Manual differential performed [Presence] in Blood N NO August 14, 2023 9:10:00 AM [facility] (TECH: InferX) ORDER 200: COMP METABOLIC PA JASON (LOINC: 83740-7) ORDER DATE: August 14, 2023 8:54:00 AM [place] Specimen Source: Serum/Plasm a PERFORMING LAB: [address] [id number] Result Comment: Final Result Date: August 14, 2023 9:21:00 AM [facility] (TECH: InferX) LOINC TEST FLAG RESULT REFERENCE RANGE UPDA GODFREY BY 2951-2 Sodium [Moles/volume ] in Serum or Plasma N 141 mmol/L 136 mmol/L - 145 mmol/L August 14, 2023 9:21:00 AM [facility] (TECH: InferX) 2823-3 Potassium [Moles/volume] in Serum or Plasma N 4.0 mmol/L 3.5 mmol/L - 5.1 mmol/L August 14, 2023 9:21:00 AM [facility] (TECH: InferX) 2075-0 Chloride [Moles/volu me] in Serum or Plasma N 101 mmol/L 98 mmol/L - 107 mmol/L August 14, 2023 9:21:00 AM UT (TECH: NautitV) 8-9 Carbon dioxide, tota l [Moles/volume] in Serum or Plasma N 23 mmol/L 21 mmol/L - 32 mmol/L August 14, 2023 9:21:00 AM [facility] (TECH: InferX) 20849-7 Anion gap 3 in Serum or Plasma N 17.0 August 14, 2023 9:21:00 AM [facility] (TECH: InferX) 2345-7 Glucose [Mass/volume ] in Serum or Plasma H 143 mg/dL 70 mg/dL - 110 mg/dL August 14, 2023 9:21:00 AM [facility] (TECH: InferX) 3094-0 Urea nitrogen [Mass/volume] in Serum or Plasma H 47 mg/dL 7 mg/dL - 18 mg/dL August 14, 2023 9:21:00 AM [facility] (TECH: InferX) 2160-0 Creatinine [Mass/volume] in Serum or Plasma H 5.8 mg/dL 0.8 mg/dL - 1.3 mg/dL August 14, 2023 9:21:00 AM [facility] ([employer]: InferX) 3097-3 Urea nitrogen/Creatinine [Mass Ratio] in Serum or Plasma L 8.1 Ratio 9 Ratio - 21 Ratio August 14, 2023 9:21:00 AM [facility] ([employer]: InferX) 96794-9 Glomerular filtratio n rate/1.73 sq M.predicted by Creatinine-based formula (MDRD) L 11 mL/min >60 August 14, 2023 9:21:00 AM [facility] (TECH: InferX) 2885-2 Protein [Mass/volume ] in Serum or Plasma H 8.6 g/dL 6.4 g/dL - 8.2 g/dL August 14, 2023 9:21:00 AM [facility] ([employer]: InferX) 1751-7 Albumin [Mass/volume ] in Serum or Plasma N 4.3 g/dL 3.4 g/dL - 5.0 g/dL August 14, 2023 9:21:00 AM [facility] ([employer]: InferX) 91253-8 Calcium [Mass/volume ] in Serum or Plasma H 11.7 mg/dL 8.5 mg/dL - 10.1 mg/dL August 14, 2023 9:21:00 AM [facility] ([employer]: InferX) 85941-4 Calcium [Mass/volume ] corrected for total protein in Serum or Plasma H 11.5 mg/dL 8.5 mg/dL - 10.1 mg/dL August 14, 2023 9:21:00 AM [facility] ([employer]: InferX) 1975-2 Bilirubin.total [Mass/volume] in Serum or Plasma N 0.4 mg/dL 0.4 mg/dL - 1.5 mg/dL August 14, 2023 9:21:00 AM [facility] (TECH: InferX) 1920-8 Aspartate aminotransferase [Enzymatic activity/volume] in Serum or Plasma N 23 U/L 15 U/L - 37 U/L August 14, 2023 9:21:00 AM [facility] (TECH: InferX) 1742-6 Alanine aminotransferase [Enzymatic activity/volume] in Serum or Plasma N 24 U/L 12 U/L - 78 U/L August 14, 2023 9:21:00 AM [facility] (TECH: InferX) 6768-6 Alkaline phosphatase [Enzymatic activity/volume] in Serum or Plasma N 98 U/L August 14, 2023 9:21:00 AM UTC (TECH: NautitV) ORDER 300: LIPASE (LOINC: 30 40-3) ORDER DATE: August 14, 2023 8:54:00 AM UTC Specimen Source: Serum/Plasm a PERFORMING LAB: [address] [id number] Result Comment: Final Result Date: August 14, 2023 9:21:00 AM UTC (TECH: RJV) LOINC TEST FLAG RESULT REFERENCE RANGE UPDA GODFREY BY 3040-3 Lipase [Enzymatic activity/volume] in Serum or Plasma N 32 U/L 16 U/L - 77 U/L August 14 9:21:00 AM UTC (TECH: NautitV) ORDER 400: UA AND MICRO/CULT IF INDICATED (LOINC: 66734-1) ORDER DATE: August 14, 2023 8:54:00 AM UTC Specimen Source: URINE PERFORMING LAB: [address] [id number] Result Comment: Final Result Date: August 14, 2023 11:01:00 AM UTC (TECH: NautitV) LOINC TEST FLAG RESULT REFERENCE RANGE UPDA GODFREY BY 5778-6 Color of Urine N LT YELLOW YELLOW Decem 2022 11:01:00 AM UTC (TECH: RJV) 5767-9 Appearance of Urine N CLEAR CLEAR August 14, 2023 11:01:00 AM UTC (TECH: RJV) 5792-7 Glucose [Mass/volume ] in Urine by Test strip N NORM NORMAL August 14, 2023 11:01:00 AM UTC (TECH: NautitV) 03379-0 Bilirubin.total [Mass/volume] in Urine by Automated test strip N NEGATIVE NEGATIVE August 14 11:01:00 AM UTC (TECH: RJV) 5797-6 Ketones [Mass/volume ] in Urine by Test strip N NEGATIVE NEGATIVE August 14, 2023 11:01:00 AM UTC (TECH: RJV) 2965-2 Specific gravity of Urine N 1.010 1.005 - 1.035 August 14 11:01:00 AM UTC (TECH: RJV) 15490-4 Erythrocytes [#/volume] in Urine by Automated test strip N 50 (2+) /mcL NEGATIVE July 11:01:00 AM UTC (TECH: InferX) 80953-9 pH of Urine by Automated test strip N 7.00 5.0 - 7.5 July 11:01:00 AM UTC (TECH: InferX) 95682-5 Protein [Presence] i n Urine by Test strip N 30 (1+) mg/dL NEGATIVE August 14, 2023 11:01:00 AM UTC (TECH: InferX) 34560-4 Urobilinogen [Mass/volume] in Urine by Automated test strip N NORM NORMAL August 14 11:01:00 AM UTC (TECH: InferX) 99816-2 Nitrate [Presence] i n Urine N NEGATIVE NEGATIVE August 14 11:01:00 AM UTC (TECH: InferX) 54223-0 Leukocytes [#/volume ] in Urine by Test strip N TRACE (25) /mcL NEGATIVE August 14, 2023 11:01:00 AM UTC (TECH: InferX) 05102-3 Other elements in Urine sediment N NOT REQUIRED August 14 11:01:00 AM UTC (TECH: InferX) 39268-7 Microscopic observation [Identifier] in Urine sediment by Light microscopy N YES August 14 11:01:00 AM UTC (TECH: InferX) 44078-8 Erythrocytes [#/area ] in Urine sediment by Microscopy high power field N RARE 0-3 August 14 11:01:00 AM UTC (TECH: InferX) 5821-4 Leukocytes [#/area] in Urine sediment by Microscopy high power field N 5-10 NONE SEEN August 14 11:01:00 AM UTC (TECH: InferX) 23348-8 Epithelial cells.squamous [#/area] in Urine sediment by Microscopy high power field N NONE SEEN NONE SEEN August 14 11:01:00 AM UTC (TECH: InferX) 5769-5 Bacteria [#/area] in Urine sediment by Microscopy high power field N NONE SEEN NONE SEEN August 14 11:01:00 AM UTC (TECH: InferX) LABORATORY NARRATIVE RESULTS Information is not available [...] Priority [place] [address] [facility] Abdomen X-ray AP single view ONE TIME 0 Stat August 14, 2023 8:54:00 AM [facility] MISBAH ANDUJAR DO [id number] on August 14, 2023 9:20:00 AM [facility] SCHEDULED PROCEDURES Code System Description Status Scheduled Date Upd ated By Patient scheduled procedure information is not available. MEDICATIONS HOME MEDICATIONS Status RXNORM Medication Dose Route Frequency Dates Comments R eported By Updated By Active 705033 atenolol 100 mg tablet 1.0 TAB PO DAILY Last Dose: [id number] on August 14, 2023 8:43:22 AM [facility] Active 636815 atorvastatin 20 mg tablet 1.0 TAB PO DAILY Last Dose: [id number] on August 14, 2023 8:43:23 AM [facility] Active 4859988 divalproex 500 mg tablet 0.0 PO BID Last Dose: [id number] on August 14, 2023 8:43:23 AM [facility] Active 948293 omeprazole 20 mg capsule 0.0 PO DAILY Last Dose: [id number] on August 14, 2023 8:43:23 AM [facility] Active 805728 QUEtiapine (SEROQUEL) 400.0 MG PO BEDTIME Last Dose: [id number] on August 14, 2023 8:43:24 AM [facility] Active 106723 risperidone 1 mg tablet 0.0 MG PO BID Last Dose: [id number] on August 14, 2023 8:43:24 AM [facility] DISCHARGE MEDICATIONS Status RXNORM Medication Dose Route Frequency Dates Comments Physic melvi Updated By No Discharge Medication Info rmation Available INPATIENT MEDICATIONS Status RXNORM Medication Dose Route Frequency Rate Quantity Dates Comments Physician Updated By No Inpatient Medication Info rmation Available SOCIAL HISTORY SOCIAL HISTORY SNOMED-CT Social History Element Description Effective Dates Offered Cessation Comment UpdatedBy [id number] Historical Tobacco smoking status Former Smoker [id number] on April 13, 2023 4:18:01 PM [facility] [id number] Historical Tobacco smoking status Never Smoked [id number] on March 09, 2023 12:27:02 PM [facility] [id number] Historical Tobacco smoking status Smoker, Current Status Unknown [id number] on January 03, 2023 2:16:04 PM [facility] [id number] Historical Tobacco smoking status Unknown If Ever Smoked [id number] on July 29, 2012 9:28:34 PM [facility] SOCIAL HISTORY - Gender Sex: Male SOCIAL HISTORY - Sexual Behavior Sexual Orientation Gender Identity SNOMED-CT Description SNO MED -CT Description Activity Level No of Partners Partner Type UpdatedBy Information is not available VITAL SIGNS PATIENT VITAL SIGNS This section displays the mo st recent value for each vital sign as of August 14, 2023 12:08:06 PM [facility] Loinc Code Vital Sign Activity Date Result Updated By 8310-5 Body temperature August 14 8:38:00 AM [place] 98.4 [degF] [id number] on August 14, 2023 8:41:09 AM [facility] 8462-4 Diastolic blood pressure August 14, 2023 10:17:00 AM UTC 89.0 mm[Hg] [id number] on August 14, 2023 10:18:25 AM [facility] 8867-4 Heart rate August 14 10:17:00 AM UTC 102 /min [id number] on August 14, 2023 10:18:25 AM [facility] 86821-4 Oxygen saturation in Arterial blood by Pulse oximetry August 14, 2023 10:17:00 AM UTC 96.0 % [id number] on August 14, 2023 10:18:25 AM [facility] 9279-1 Respiratory rate August 14 10:17:00 AM UTC 20 /min [id number] on August 14, 2023 10:18:25 AM [facility] 8480-6 Systolic blood pressure August 14, 2023 10:17:00 AM UTC 140.0 mm[Hg] [id number] on August 14, 2023 10:18:25 AM [facility] PEDIATRIC GROWTH CHART - VITAL SIGNS This [...] available. ENCOUNTERS ENCOUNTER INFORMATION Reason for Visit CONSTIPATION Admission August 14, 2023 8:32:[address] [id number] Discharge August 14, 2023 11:08:00 AM [place] C DISCHARGED TO HOME OR SELF CARE ENCOUNTER DIAGNOSES Notes information is not lauryn ilable. Code System Diagnosis Onset Date Diagnosis information is not available. ABSTRACT DIAGNOSES Code System Diagnosis Updated By Abstract Diagnosis informati on is not available. 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 Role on Team Status Start Date End Date Update d By MISBAH ANDUJAR DO Referring normal July 8:39:46 AM [place] August 14, 2023 11:08:00 AM [facility] [id number] on August 14, 2023 8:39:46 AM [facility] MISBAH ANDUJAR DO Attending normal July 8:39:46 AM [place] August 14, 2023 11:08:00 AM [facility] [id number] on August 14, 2023 8:39:46 AM [facility] MISBAH ANDUJAR DO Admitting normal July 8:39:46 AM [place] August 14, 2023 11:08:00 AM [facility] [id number] on August 14, 2023 8:39:46 AM [facility] GANESH Quinones MD PHY PCP normal August 14, 2023 8:32:23 AM [place] August 14, 2023 11:08:00 AM [facility] [id number] on August 14, 2023 8:39:46 AM [facility]
[2024-02-21 08:35] VITALS: BP 126/93; PULSE 89; RESP 18; O2SAT 99; BMI 30.3
--- NOTE | 2024-02-21 09:07 | EXP.PAIN.OV ---
HPI Data of Consult Patient: new to practice Consult date: 02/21/24 Requesting Physician: Kristen Vasquez APRN Primary Care Provider: Igor Majano MD Consult Narrative Reason for consult: Low back pain, leg pain History of present illness: Mr. Cutler is a 64 year old male presents today as a new patient. He is a referral from Dr. Richie Mueller's office. Today he rates his pain a 7 out of 10. Patient states that he has chronic low back pain that radiates into his bilateral lower extremities. He describes it as an aching, throbbing sensation with numbness and tingling. He states this been going on for longer than 30 years unrelated to any specific trauma or or injury. 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 Patient does state the pain interferes with his ability perform activities of daily living such as cooking and cleaning. Patient denies any prior back surgery but does state he has had injections in the past that worked significantly well and gave him more improvement and he is interested in repeating these injections. Patient has tried [id number] Tylenol and ibuprofen along with heat and ice and topicals with minimal relief. Patient does see a chiropractor on a regular basis and states that in the past sometimes its made it worse however on occasion it still helps. Patient denies do at home exercising and stretching including walking daily for longer than 12 weeks with minimal improvement. Patient does also state that he knows that he has being overweight and needing to lose some additional pounds is playing a role as well. Patient is currently managed with diclofenac gel, tramadol 50 mg daily, gabapentin 300 mg twice a day from his PCP. Patient states that these medications are not cutting it. His Curtis has been reviewed and is appropriate. CC: Kristen Vasquez APRN [facility] Disclaimer: The information contained in this section may have been updated after the patient was seen, as this information can be updated by other users. Medical History (Updated 02/21/24 @ 09:11 by Kristen Vasquez APRN) Dilation of esophagus GERD (gastroesophageal reflux disease) Depression Anxiety Mood disorder Insomnia Hypothyroidism DDD (degenerative disc disease), lumbar HTN (hypertension) Surgical History (Updated 02/21/24 @ 08:38 by Radha Patterson RN) History of appendectomy Family History (Updated 02/21/24 @ 08:37 by Radha Patterson RN) Other Arthritis Hyperlipidemia Hypertension Kidney stones Social History (Updated 02/21/24 @ 09:01 by Radha Patterson RN) Smoking Status: Never smoker alcohol intake: never substance use type: denies use current occupational status: disabled Travel in the last 8 weeks: None Review of Systems Review of Systems Review of systems:: pertinent systems reviewed and negative unless documented below Review of systems (narrative): Review of Systems: General: No recent weight changes, no fever, no sleep disturbances Respiratory: No cough, no shortness of air, no recurring pulmonary infections Cardiovascular/peripheral vascular: No chest pain, no palpitations, no edema, no shortness of breath Gastrointestinal: No new onset incontinence, normal bowel movements reported Genitourinary: No new onset incontinence Musculoskeletal: Low back pain, leg pain Psychiatric: [Normal mood/affect] Neurological: [Denies weakness in extremities], [denies balance issues] Meds Home Medications and Allergies Home Medications Medication Instructions Recorded Confirmed Type gabapentin 800 mg tablet 800 mg PO TID 11/19/17 05/11/20 History oxycodone 10 mg tablet 10 mg PO TID PRN 11/19/17 05/11/20 History atenolol 100 mg tablet 100 mg PO QAM #90 tabs 11/19/18 05/11/20 Rx colchicine 0.6 mg tablet 0.6 mg PO DAILY #90 tabs 11/19/18 05/11/20 Rx febuxostat 80 mg tablet (Uloric) 80 mg PO DAILY #90 tabs 11/19/18 05/11/20 Rx lisinopril 10 mg tablet 10 mg PO DAILY #90 tabs 11/19/18 05/11/20 Rx pantoprazole 40 mg tablet,delayed 40 mg PO DAILY #90 tabs 11/19/18 05/11/20 Rx release tamsulosin 0.4 mg capsule 0.4 mg PO DAILY #90 caps 11/19/18 05/11/20 Rx quetiapine 300 mg tablet See Rx Instructions .Route 04/30/20 05/11/20 Rx .COMPLEX #90 tabs cyclobenzaprine 10 mg tablet See Rx Instructions .Route 05/07/20 05/11/20 Rx .COMPLEX #90 tabs atorvastatin 10 mg tablet 10 mg PO QHS 90 days #90 tabs 05/13/20 Rx levothyroxine 25 mcg tablet 50 mcg (2 x 25 mcg) PO DAILY 90 05/13/20 Rx days #180 tabs prednisone 20 mg tablet 20 mg PO BID 7 days #14 tabs 05/28/20 Rx fluoxetine 40 mg capsule See Rx Instructions .Route 11/08/20 Rx .COMPLEX #60 caps New Prescriptions to Start Prescriptions: Allergies Allergy/AdvReac Type Severity Reaction Status Date / Time No Known Drug Allergies Allergy Unknown Verified 05/11/20 14:31 [NO KNOWN DRUG ALLERGIES] Objective Narrative: Physical Exam: General: Alert and oriented x3, no acute distress, pleasant and cooperative Lungs: Respirations even and unlabored, symmetrical chest expansion Eyes: PERRL Musculoskeletal: Flexion and extension of lumbar [spine] somewhat guarded secondary to pain, [antalgic gait noted] Neurological: Speech clear, no gross sensory deficit Assessment and Plan *Assessment and plan (1) DDD (degenerative disc disease), lumbar: Status: Acute Category: Medical Code(s): M51.36 - Other intervertebral disc degeneration, lumbar region (2) Lumbar radiculopathy: Status: Acute Category: Medical Code(s): M54.16 - Radiculopathy, lumbar region Plan Patient is experiencing significant pain throughout his low back and legs with limited range of motion. Patient did have point tenderness around his lower lumbar spine during today's visit. Patient did have imaging done at [place] and we will reach out to this hospital to get a copy of it. I have discussed with patient that he may benefit from a lumbar epidural steroid injection. Risk and benefits were reviewed with the patient and he would like to proceed forward with this plan of care. Patient is not on any blood thinners. Patient has tried and failed conservative therapy including recent chiropractor therapy and continued at home exercising and stretching for longer than 12 weeks. We will schedule the patient for an LESI L4-L5 under fluoroscopy. Patient has been instructed to contact the clinic with any concerns before the next appointment. Dr. Mahoney has reviewed this note and agrees with this plan of care. This note was dictated using voice recognition software and make contain errors or omissions.
== END 2024-02-21 23:59 | disposition home or self-care (01) ==
PROVIDERS: PCP Emergency Medicine; Visit Provider Nurse Practitioner Family
DX: M51.36 Other intervertebral disc degeneration, lumbar region (principal); M54.16 Radiculopathy, lumbar region
CPT/HCPCS: 99202; G0463

== ENCOUNTER 2024-03-11 12:49 | Day surgery (SDC) | payer MEDICARE, SELFPAY ==
[2024-03-11 13:08] VITALS: BP 148/92; PULSE 82; RESP 18; TEMP 36.8; O2SAT 96; BMI 29.7
[2024-03-11] MEDS: methylPREDNISolone ACETATE 80MG/ML VIAL 80 MG (13:15)
--- NOTE | 2024-03-11 13:17 | EXP.PAIN.PRO ---
Procedure Date: 03/11/24 Time: 13:10 Anesthesiologist:: Roberto Arthur CRNA Complications:: None Pre-procedure Diagnosis:: Degenerative disc lumbar spine multilevels. Lumbar radiculopathy. Lumbar spondylosis. Multilevel lumbar facet arthropathy. Post-procedure Diagnosis:: Same. Indications for Procedure:: Patient is a pleasant 64-year-old male comes our clinic today for lumbar epidural steroid injections L4-5 level. Patient reports significant improvement terms of his overall low back pain as well as bilateral hip and leg radicular symptoms with previous injections at the same level. Procedure Details:: Procedure: Lumbar epidural steroid injection under fluoroscopy Informed consent was obtained and the risks and benefits of the procedure were explained to the patient. The patient was taken to the procedure room and noninvasive monitors placed, including noninvasive blood pressure cuff and pulse oximeter. The back was viewed using C-arm Fluoroscopy and prepped using Chloraprep as a cleansing solution and the L4-L5 interspace was palpated. Skin and subcutaneous tissues were anesthetized using lidocaine 1.5% and a 25-gauge needle. After this, an 18-gauge Touhy epidural needle was placed into the L4-L5 interspace and advanced using fluoroscopic guidance and loss of resistance to air until the epidural space was encountered. After confirmation of needle placement in the epidural space, with dye, a solution containing normal saline, 3 mL and Depo-Medrol 80 mg were incrementally injected into the lumbar epidural space. The patient tolerated the procedure well with no complications. The patient was observed in the Pain Clinic and then discharged home neurologically intact. Plan and Disposition:: Patient was discharged without incident.
[2024-03-11 13:18] VITALS: BP 151/93; PULSE 87; RESP 18; O2SAT 96
== END 2024-03-11 13:23 | disposition home or self-care (01) ==
PROVIDERS: PCP Emergency Medicine; Visit Provider Nurse Anesthetist, Certified Registered
DX: M47.26 Other spondylosis with radiculopathy, lumbar region (principal)
CPT/HCPCS: 62323; J1010

== ENCOUNTER 2024-03-26 14:36 | Outpatient (POV) | payer MEDICARE, SELFPAY ==
[2024-03-26 14:59] VITALS: BP 146/99; PULSE 98; RESP 18; O2SAT 96; BMI 29.7
--- NOTE | 2024-03-26 15:35 | A.OFFVIS_ITS ---
[facility] Disclaimer: The information contained in this section may have been updated after the patient was seen, as this information can be updated by other users. Medical History Dilation of esophagus GERD (gastroesophageal reflux disease) Depression Anxiety Mood disorder Insomnia Hypothyroidism DDD (degenerative disc disease), lumbar HTN (hypertension) Surgical History History of appendectomy Family History Other Arthritis Hyperlipidemia Hypertension Kidney stones Social History Smoking Status: Never smoker alcohol intake: never substance use type: denies use current occupational status: disabled Travel in the last 8 weeks: None PM Subjective & Objective Subjective Subjective:: Patient is a pleasant 64-year-old male who presents today for follow-up of his lumbar epidural steroid injection L4-L5 on 03/11/2024. He does state that he had at least 50% improvement following this injection and feels like it is still helping some however he has started to notice a little bit more pain coming back on. Patient does state that he has had improved function and able to do more following this injection. He denies any new trauma or injury. Patient does state that he has thought about starting back to school a couple of days a week and feels like if the pain continues to worsen he may not be able to do this because he is being up on his feet for longer periods of time. He is asking if we could try medication of some sort. Patient does use Biofreeze topical along with tramadol and gabapentin from his PCP. His Curtis has been reviewed. Review of Systems: General: No recent weight changes, no fever, no sleep disturbances Respiratory: No cough, no shortness of air, no recurring pulmonary infections Cardiovascular/peripheral vascular: No chest pain, no palpitations, no edema, no shortness of breath Gastrointestinal: No new onset incontinence, normal bowel movements reported Genitourinary: No new onset incontinence Musculoskeletal: Low back pain, leg pain Psychiatric: [Normal mood/affect] Neurological: [Denies weakness in extremities], [denies balance issues] Pain at rest (0-10 scale): 8 Objective Objective:: Physical Exam: General: Alert and oriented x3, no acute distress, pleasant and cooperative Lungs: Respirations even and unlabored, symmetrical chest expansion Eyes: PERRL Musculoskeletal: Flexion and extension of lumbar [spine] somewhat guarded secondary to pain, [antalgic gait noted] Neurological: Speech clear, no gross sensory deficit Has patient had previous pain injection?: Yes Percent improvement in pain since last injection: 50% Conservative treatment options previously tried: Home exercise plan Length of treatment: Longer than 6 weeks Meds Home Medications and Allergies Home Medications ?Medication ?Instructions ?Recorded ?Confirmed ?Type gabapentin 800 mg tablet 800 mg PO TID 11/19/17 03/26/24 History oxycodone 10 mg tablet 10 mg PO TID PRN Pain 11/19/17 03/26/24 History atenolol 100 mg tablet 100 mg PO QAM #90 tabs 11/19/18 03/26/24 Rx colchicine 0.6 mg tablet 0.6 mg PO DAILY #90 tabs 11/19/18 03/26/24 Rx febuxostat 80 mg tablet (Uloric) 80 mg PO DAILY #90 tabs 11/19/18 03/26/24 Rx lisinopril 10 mg tablet 10 mg PO DAILY #90 tabs 11/19/18 03/26/24 Rx pantoprazole 40 mg tablet,delayed 40 mg PO DAILY #90 tabs 11/19/18 03/26/24 Rx release tamsulosin 0.4 mg capsule 0.4 mg PO DAILY #90 caps 11/19/18 03/26/24 Rx quetiapine 300 mg tablet See Rx Instructions .Route 04/30/20 03/26/24 Rx .COMPLEX #90 tabs cyclobenzaprine 10 mg tablet See Rx Instructions .Route 05/07/20 03/26/24 Rx .COMPLEX #90 tabs atorvastatin 10 mg tablet 10 mg PO QHS 90 days #90 tabs 05/13/20 03/26/24 Rx levothyroxine 25 mcg tablet 50 mcg (2 x 25 mcg) PO DAILY 90 05/13/20 03/26/24 Rx days #180 tabs prednisone 20 mg tablet 20 mg PO BID 7 days #14 tabs 05/28/20 03/26/24 Rx fluoxetine 40 mg capsule See Rx Instructions .Route 11/08/20 03/26/24 Rx .COMPLEX #60 caps New Prescriptions to Start Prescriptions: Allergies Allergy/AdvReac Type Severity Reaction Status Date / Time No Known Drug Allergies Allergy Unknown Verified 05/11/20 14:31 [NO KNOWN DRUG ALLERGIES] Assessment and Plan *Assessment and plan (1) DDD (degenerative disc disease), lumbar: Status: Acute Category: Medical Code(s): M51.36 - Other intervertebral disc degeneration, lumbar region (2) Lumbar radiculopathy: Status: Acute Category: Medical Code(s): M54.16 - Radiculopathy, lumbar region Plan Patient has had significant improvement following his injection and does not require any additional injection therapy at this time. I have counseled the patient that we can try to add a muscle relaxer. Patient has been previously on Flexeril however stated he did not really notice improvement. I will send in a prescription of baclofen 10 mg at bedtime and provide a 2-week supply of this medication. Patient will return to clinic in 1 month for reevaluation of symptoms and plan of care. Patient has been instructed to contact the clinic with any concerns before the next appointment. Dr. Mahoney has reviewed this note and agrees with this plan of care. This note was dictated using voice recognition software and make contain errors or omissions. All injections are used with Lidocaine or Bupivacaine and Depo Medrol.
== END 2024-03-26 23:59 | disposition home or self-care (01) ==
PROVIDERS: PCP Emergency Medicine; Visit Provider Nurse Practitioner Family
DX: M51.16 Intervertebral disc disorders with radiculopathy, lumbar region (principal); Z79.899 Other long term (current) drug therapy
CPT/HCPCS: 99212; G0463

== ENCOUNTER 2024-04-24 13:32 | Outpatient (POV) | payer MEDICARE, SELFPAY ==
[2024-04-24 13:48] VITALS: BP 143/93; PULSE 108; RESP 16; O2SAT 96; BMI 14.2
--- NOTE | 2024-04-24 14:07 | A.OFFVIS_ITS ---
[facility] Disclaimer: The information contained in this section may have been updated after the patient was seen, as this information can be updated by other users. Medical History Dilation of esophagus GERD (gastroesophageal reflux disease) Depression Anxiety Mood disorder Insomnia Hypothyroidism DDD (degenerative disc disease), lumbar HTN (hypertension) Surgical History History of appendectomy Family History Other Arthritis Hyperlipidemia Hypertension Kidney stones Social History Smoking Status: Never smoker alcohol intake: never substance use type: denies use current occupational status: unemployed Travel in the last 8 weeks: None PM Subjective & Objective Subjective Subjective:: Patient is a pleasant 64-year-old male who presents today for 1 month follow-up. Today he rates his pain an 8 out of 10. Patient denies any new trauma or injury. He does state that he continues to have chronic pain throughout his back that does radiate into his bilateral lower extremities. Patient did have a lumbar epidural on March 11 that did provide 50% improvement however he does state today that he is back to his baseline. Patient states the building he is in he has to walk a lot and it does aggravate his overall symptoms along with trying to take care of multiple kids. Patient was started on baclofen 10 mg at bedtime however he states that it has not been long enough yet to notice an overall improvement. He states that he does feel like if he could have something during the day this may provide additional relief. Patient is on gabapentin from his PCP and was tried on tramadol in the past however states that it did not provide good relief. Patient does also state that he has had elevated creatinine and that this does happen from time to time. His Curtis has been reviewed. Review of Systems: General: No recent weight changes, no fever, no sleep disturbances Respiratory: No cough, no shortness of air, no recurring pulmonary infections Cardiovascular/peripheral vascular: No chest pain, no palpitations, no edema, no shortness of breath Gastrointestinal: No new onset incontinence, normal bowel movements reported Genitourinary: No new onset incontinence Musculoskeletal: Low back pain, leg pain Psychiatric: [Normal mood/affect] Neurological: [Denies weakness in extremities], [denies balance issues] Pain at rest (0-10 scale): 8 Objective Objective:: Physical Exam: General: Alert and oriented x3, no acute distress, pleasant and cooperative Lungs: Respirations even and unlabored, symmetrical chest expansion Eyes: PERRL Musculoskeletal: Flexion and extension of lumbar [spine] somewhat guarded secondary to pain, [antalgic gait noted] Neurological: Speech clear, no gross sensory deficit Has patient had previous pain injection?: No Conservative treatment options previously tried: Home exercise plan Length of treatment: Longer than 6 weeks Meds Home Medications and Allergies Home Medications ?Medication ?Instructions ?Recorded ?Confirmed ?Type gabapentin 800 mg tablet 800 mg PO TID 11/19/17 04/24/24 History oxycodone 10 mg tablet 10 mg PO TID PRN Pain 11/19/17 04/24/24 History atenolol 100 mg tablet 100 mg PO QAM #90 tabs 11/19/18 04/24/24 Rx colchicine 0.6 mg tablet 0.6 mg PO DAILY #90 tabs 11/19/18 04/24/24 Rx febuxostat 80 mg tablet (Uloric) 80 mg PO DAILY #90 tabs 11/19/18 04/24/24 Rx lisinopril 10 mg tablet 10 mg PO DAILY #90 tabs 11/19/18 04/24/24 Rx pantoprazole 40 mg tablet,delayed 40 mg PO DAILY #90 tabs 11/19/18 04/24/24 Rx release tamsulosin 0.4 mg capsule 0.4 mg PO DAILY #90 caps 11/19/18 04/24/24 Rx quetiapine 300 mg tablet See Rx Instructions .Route 04/30/20 04/24/24 Rx .COMPLEX #90 tabs cyclobenzaprine 10 mg tablet See Rx Instructions .Route 05/07/20 04/24/24 Rx .COMPLEX #90 tabs atorvastatin 10 mg tablet 10 mg PO QHS 90 days #90 tabs 05/13/20 04/24/24 Rx levothyroxine 25 mcg tablet 50 mcg (2 x 25 mcg) PO DAILY 90 05/13/20 04/24/24 Rx days #180 tabs prednisone 20 mg tablet 20 mg PO BID 7 days #14 tabs 05/28/20 04/24/24 Rx fluoxetine 40 mg capsule See Rx Instructions .Route 11/08/20 04/24/24 Rx .COMPLEX #60 caps baclofen 10 mg tablet 10 mg PO HS #14 tabs 03/26/24 04/24/24 Rx New Prescriptions to Start Prescriptions: Allergies Allergy/AdvReac Type Severity Reaction Status Date / Time No Known Drug Allergies Allergy Unknown Verified 05/11/20 14:31 [NO KNOWN DRUG ALLERGIES] Assessment and Plan *Assessment and plan (1) Lumbar radiculopathy: Status: Acute Category: Medical Code(s): M54.16 - Radiculopathy, lumbar region (2) DDD (degenerative disc disease), lumbar: Status: Acute Category: Medical Code(s): M51.36 - Other intervertebral disc degeneration, lumbar region Plan I will change his baclofen to 10 mg 3 times daily as needed and also send in a prescription of lidocaine patches and provide a 1 month supply of this medication. Patient had imaging at [place] and we were waiting to get a copy of this. At this time we will not prescribe any additional medications due to the patient's altered kidney function and lack of lumbar imaging. Patient will return to clinic in 1 month for reevaluation of symptoms and plan of care. Patient has been instructed to contact the clinic with any concerns before the next appointment. Dr. Mahoney has reviewed this note and agrees with this plan of care. This note was dictated using voice recognition software and make contain errors or omissions. All injections are used with Lidocaine or Bupivacaine and Depo Medrol.
== END 2024-04-24 23:59 | disposition home or self-care (01) ==
PROVIDERS: PCP Emergency Medicine; Visit Provider Nurse Practitioner Family
DX: M51.16 Intervertebral disc disorders with radiculopathy, lumbar region (principal); Z79.899 Other long term (current) drug therapy
CPT/HCPCS: 99212; G0463

== ENCOUNTER 2024-06-25 08:10 | Outpatient (POV) | payer MEDICARE, SELFPAY ==
--- NOTE | 2024-06-25 08:47 | A.OFFVIS_ITS ---
[facility] Disclaimer: The information contained in this section may have been updated after the patient was seen, as this information can be updated by other users. Medical History Dilation of esophagus GERD (gastroesophageal reflux disease) Depression Anxiety Mood disorder Insomnia Hypothyroidism DDD (degenerative disc disease), lumbar HTN (hypertension) Surgical History History of appendectomy Family History Other Arthritis Hyperlipidemia Hypertension Kidney stones Social History Smoking Status: Never smoker alcohol intake: never substance use type: denies use current occupational status: unemployed Travel in the last 8 weeks: None PM Subjective & Objective Subjective Subjective:: Patient is a pleasant 64-year-old male who presents today for 1 month follow-up. Today he rates his pain a 8 out of 10. He denies any new trauma or injury. He does state he still continues to have the chronic pain throughout his low back. Patient did state that the baclofen 10 mg 3 times a day did seem to help and that his insurance would not cover the lidocaine 5% patches but he did get the 4% [id number]. He states this did help as well. Patient does state that he would like something to provide more consistent relief and is asking whether or not if we can do any oral pain medications. Patient states he has had these in the past and they did at least take the edge off. His Curtis has been reviewed and is appropriate. Review of Systems: General: No recent weight changes, no fever, no sleep disturbances Respiratory: No cough, no shortness of air, no recurring pulmonary infections Cardiovascular/peripheral vascular: No chest pain, no palpitations, no edema, no shortness of breath Gastrointestinal: No new onset incontinence, normal bowel movements reported Genitourinary: No new onset incontinence Musculoskeletal: Chronic low back pain Psychiatric: [Normal mood/affect] Neurological: [Denies weakness in extremities], [denies balance issues] Pain at rest (0-10 scale): 8 Objective Objective:: Physical Exam: General: Alert and oriented x3, no acute distress, pleasant and cooperative Lungs: Respirations even and unlabored, symmetrical chest expansion Eyes: PERRL Musculoskeletal: Flexion and extension of lumbar [spine] somewhat guarded secondary to pain, [antalgic gait noted] Neurological: Speech clear, no gross sensory deficit Has patient had previous pain injection?: No Conservative treatment options previously tried: Home exercise plan Length of treatment: longer than 12 weeks Meds Home Medications and Allergies Home Medications ?Medication ?Instructions ?Recorded ?Confirmed ?Type gabapentin 800 mg tablet 800 mg PO TID 11/19/17 04/24/24 History oxycodone 10 mg tablet 10 mg PO TID PRN Pain 11/19/17 04/24/24 History atenolol 100 mg tablet 100 mg PO QAM #90 tabs 11/19/18 04/24/24 Rx colchicine 0.6 mg tablet 0.6 mg PO DAILY #90 tabs 11/19/18 04/24/24 Rx febuxostat 80 mg tablet (Uloric) 80 mg PO DAILY #90 tabs 11/19/18 04/24/24 Rx lisinopril 10 mg tablet 10 mg PO DAILY #90 tabs 11/19/18 04/24/24 Rx pantoprazole 40 mg tablet,delayed 40 mg PO DAILY #90 tabs 11/19/18 04/24/24 Rx release tamsulosin 0.4 mg capsule 0.4 mg PO DAILY #90 caps 11/19/18 04/24/24 Rx quetiapine 300 mg tablet See Rx Instructions .Route 04/30/20 04/24/24 Rx .COMPLEX #90 tabs cyclobenzaprine 10 mg tablet See Rx Instructions .Route 05/07/20 04/24/24 Rx .COMPLEX #90 tabs atorvastatin 10 mg tablet 10 mg PO QHS 90 days #90 tabs 05/13/20 04/24/24 Rx levothyroxine 25 mcg tablet 50 mcg (2 x 25 mcg) PO DAILY 90 05/13/20 04/24/24 Rx days #180 tabs prednisone 20 mg tablet 20 mg PO BID 7 days #14 tabs 05/28/20 04/24/24 Rx fluoxetine 40 mg capsule See Rx Instructions .Route 11/08/20 04/24/24 Rx .COMPLEX #60 caps baclofen 10 mg tablet 10 mg PO TID #90 tabs 04/24/24 Rx lidocaine 5 % topical patch 1 patch topical DAILY #30 ea 04/24/24 Rx New Prescriptions to Start Prescriptions: Allergies Allergy/AdvReac Type Severity Reaction Status Date / Time No Known Drug Allergies Allergy Unknown Verified 05/11/20 14:31 [NO KNOWN DRUG ALLERGIES] Assessment and Plan *Assessment and plan (1) DDD (degenerative disc disease), lumbar: Status: Acute Category: Medical Code(s): M51.36 - Other intervertebral disc degeneration, lumbar region (2) Lumbar radiculopathy: Status: Acute Category: Medical Code(s): M54.16 - Radiculopathy, lumbar region Plan Patient was counseled that we do more interventional pain versus opioid medications. Patient acknowledges understanding. I did discuss with the patient that we do more injections for things such as the intrathecal pain pump or spinal cord stimulator trial. Patient does state that he would like to see about trying the pump trial. Risk and benefits were discussed with the patient and he would like to proceed with this plan of care. Patient has tried and failed conservative therapy including oral medications including tramadol and oxycodone, heat and ice, topicals, physical therapy, continued at home stretching exercise for longer than 12 weeks and injection therapy. Patient has had injections and stated that it was very painful and that they did not last long enough to make them more worthwhile. Patient will be ordered a psychological evaluation and if he is deemed an appropriate candidate we will be submitted for the intrathecal pain pump trial at a later date. Patient will return to clinic in 1 month following his psych eval. Patient has been instructed to contact the clinic with any concerns before the next appointment. Dr. Mahoney has reviewed this note and agrees with this plan of care. This note was dictated using voice recognition software and make contain errors or omissions. All injections are used with Lidocaine or Bupivacaine and Depo Medrol.
[2024-06-25 09:07] VITALS: BP 147/96; PULSE 92; RESP 14; O2SAT 92; BMI 28.3
== END 2024-06-25 23:59 | disposition home or self-care (01) ==
PROVIDERS: PCP Emergency Medicine; Visit Provider Nurse Practitioner Family
DX: M51.16 Intervertebral disc disorders with radiculopathy, lumbar region (principal)
CPT/HCPCS: 99212; G0463